=== PATIENT | female | born 1975 | race Caucasian/White ===

== ENCOUNTER 2024-06-04 07:52 | Day surgery (SDC) | payer OTHER ==
[~2024-06-04] VITALS: Ht 162.6 cm; Wt 51.3 kg
[~2024-06-04 07:52] MED LIST: NS 500 ML IV ONE
[2024-06-04] MEDS ORDERED: CeFAZolin Sodium 2,000 MG VIAL ONE (08:27)
[2024-06-04] MEDS ORDERED: LEVSOD100 PO (08:45)
[2024-06-04] MEDS ORDERED: METF500 PO (08:45)
[2024-06-04] MEDS ORDERED: TRULICITY1.5 MG/0.1 SC (08:47)
[2024-06-04] MEDS ORDERED: LANTUS SOL100 UNIT/1 SC (08:49)
[2024-06-04] MEDS ORDERED: MELO7.5 PO (08:52)
[2024-06-04] MEDS ORDERED: Lactated Ringer's 1,000 ML IV ONE (08:58)
--- NOTE | 2024-06-04 09:01 | NUR ---
06/04/24 0901 Fern Kim 0853: TIMEOUT FOR INJECTION 0855: INJECTION BY DR CHOW OF TOTAL OF 16 CC (2 SYRINGES USED OF MIX OF 9CC LIDOCAINE 1% WIHT EPI 1:100,000 WITH 1 CC SODIUM BICARB)
[2024-06-04] MEDS ORDERED: Midazolam HCl 1MG / ML 2ML Vial ONE (09:04)
[2024-06-04] MEDS ORDERED: Ondansetron HCl 2 MG / ML 2ML Vial ONE (09:04)
[2024-06-04] MEDS ORDERED: Dexamethasone Sod Phos 10 MG/ML 1ML VIAL ONE (09:04)
[2024-06-04] MEDS ORDERED: FentaNYL Citrate 50 MCG/ML 2 ML Injection ONE (09:04)
--- NOTE | 2024-06-04 09:57 | NUR ---
06/04/24 0957 Dolores Delgado PT SITTING UP IN RECLINER, TOLERATING ICE WATER W/O COMPLAINT. PT DENIES PAIN/NAUSEA. VSS, ON RA. NO VISIBLE SIGNS OF DISTRESS NOTED.
== END 2024-06-04 10:10 | disposition home or self-care (01) ==
LOC: ORSCSDS 07:52
PROVIDERS: Orthopaedic Surgery
PROC: 0JBJ0ZX Excision of Right Hand Subcutaneous Tissue and Fascia, Open Approach, Diagnostic (ICD-10-PCS; principal; 2024-06-04 09:30)
PROC: 01N54ZZ Release Median Nerve, Percutaneous Endoscopic Approach (ICD-10-PCS; principal; 2024-06-04 09:30)
PROC: 0LN50ZZ Release Right Lower Arm and Wrist Tendon, Open Approach (ICD-10-PCS; principal; 2024-06-04 09:30)
DX: G56.01 Carpal tunnel syndrome, right upper limb (principal); M65.4 Radial styloid tenosynovitis [de Quervain]; D48.19 Other specified neoplasm of uncertain behavior of connective and other soft tissue; E11.9 Type 2 diabetes mellitus without complications; E03.9 Hypothyroidism, unspecified; Z79.4 Long term (current) use of insulin; Z79.84 Long term (current) use of oral hypoglycemic drugs; Z79.899 Other long term (current) drug therapy; Z87.891 Personal history of nicotine dependence
CPT/HCPCS: 82947; 88305; J0690; J1100; J2250; J2405; J3010; J7040

== ENCOUNTER 2025-01-17 09:22 | Day surgery (SDC) | payer OTHER ==
[~2025-01-17] VITALS: Ht 162.6 cm; Wt 51.6 kg
[~2025-01-17 09:22] MED LIST changes: +LANTUS SOL100 UNIT/1 SC; +LEVSOD100 PO; +MELO7.5 PO; +METF500 PO; +TRULICITY1.5 MG/0.1 SC
[2025-01-17] MEDS ORDERED: CeFAZolin Sodium 2,000 MG VIAL ONE (09:41)
[2025-01-17] MEDS ORDERED: TRAZ50 PO (10:07)
[2025-01-17] MEDS ORDERED: NS 500 ML IV ONE (10:14)
--- NOTE | 2025-01-17 10:17 | NUR ---
01/17/25 1017 Kathy Diaz TIME OUT PERFORMED AT BEDSIDE WITH DR CHOW AT 1003 IMMEDIATELY PRIOR TO INJECTION OF 6ML OF SOLUTION CONSISTING OF 9ML 1% LIDOCAINE W/EPI 1:[id number] AND 1ML 8.4% SODIUM BICARBONATE INTO R HAND. PT TOLERATED PROCEDURE WELL.
--- NOTE | 2025-01-17 11:00 | NUR ---
01/17/25 1100 Ev Clay 1056: DR. CHOW AT BEDSIDE
== END 2025-01-17 11:15 | disposition home or self-care (01) ==
LOC: ORSCSDS 09:22
PROVIDERS: Orthopaedic Surgery
PROC: 0LN70ZZ Release Right Hand Tendon, Open Approach (ICD-10-PCS; principal; 2025-01-17 11:00)
DX: M65.331 Trigger finger, right middle finger (principal); E11.9 Type 2 diabetes mellitus without complications; E03.9 Hypothyroidism, unspecified; Z87.891 Personal history of nicotine dependence; Z79.4 Long term (current) use of insulin; Z79.84 Long term (current) use of oral hypoglycemic drugs; Z79.85 Long-term (current) use of injectable non-insulin antidiabetic drugs; Z79.899 Other long term (current) drug therapy
CPT/HCPCS: 82947; J0690; J2704; J7040